=== PATIENT | male | born 1990 | race Hispanic/Latino ===

== ENCOUNTER 2017-10-10 18:31 | Emergency (ER) | payer MEDICAID, OTHER ==
[2017-10-10 18:46] VITALS: BP 116/66; PULSE 71; RESP 18; TEMP 98.6; O2SAT 100
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
== END 2017-10-10 22:50 | disposition home or self-care (01) ==
LOC: H.ER 18:31
DX: S09.90XA Unspecified injury of head, initial encounter (principal); V43.62XA Car passenger injured in collision with other type car in traffic accident, initial encounter; Y92.410 Unspecified street and highway as the place of occurrence of the external cause; R55 Syncope and collapse; F41.9 Anxiety disorder, unspecified; J32.9 Chronic sinusitis, unspecified; Z88.0 Allergy status to penicillin